=== PATIENT | female | born 1970 | race Hispanic/Latino ===

== ENCOUNTER → 2017-09-21 | Outpatient (CLI) | payer MEDICARE | END | disposition home or self-care (01) | LOC: RAH 10:00 | PROVIDERS: ATTEND Internal Medicine | DX: M54.12 Radiculopathy, cervical region (principal) | CPT/HCPCS: 72141 ==

== ENCOUNTER 2017-09-28 04:01 | Emergency (ER) | payer MEDICARE ==
[2017-09-28] MEDS ORDERED: KETOROLAC TROMETHAMINE 60 MG/2 ML VIAL ONE (04:49)
== END 2017-09-28 05:01 | disposition home or self-care (01) ==
LOC: EDH 04:01
DX: M54.16 Radiculopathy, lumbar region (principal); E11.9 Type 2 diabetes mellitus without complications; E78.5 Hyperlipidemia, unspecified; M19.90 Unspecified osteoarthritis, unspecified site; Z98.84 Bariatric surgery status
CPT/HCPCS: 96372; 99283; J1885

== ENCOUNTER → 2017-12-14 | Outpatient (CLI) | payer MEDICARE | END | disposition home or self-care (01) | LOC: OIH 11:13 | PROVIDERS: ATTEND Anesthesiology | DX: M17.11 Unilateral primary osteoarthritis, right knee (principal) | CPT/HCPCS: 73562 ==

== ENCOUNTER → 2019-09-13 | Outpatient (CLI) | payer MEDICARE | END | disposition home or self-care (01) | LOC: OIH 09:33 | PROVIDERS: ATTEND Internal Medicine | DX: Z01.818 Encounter for other preprocedural examination (principal) | CPT/HCPCS: 71046 ==

== ENCOUNTER → 2020-07-29 | Outpatient (CLI) | payer MEDICARE | END | disposition home or self-care (01) | LOC: RAH 07:45 | PROVIDERS: ATTEND Internal Medicine | DX: K76.0 Fatty (change of) liver, not elsewhere classified (principal); R16.0 Hepatomegaly, not elsewhere classified | CPT/HCPCS: 76700 ==

== ENCOUNTER → 2020-12-09 | Outpatient (CLI) | payer MEDICARE | END | disposition home or self-care (01) | LOC: RAH 08:44 | PROVIDERS: ATTEND Internal Medicine | DX: M47.22 Other spondylosis with radiculopathy, cervical region (principal) | CPT/HCPCS: 72040 ==

== ENCOUNTER → 2021-11-26 | Outpatient (CLI) | payer OTHER, MEDICARE | END | disposition home or self-care (01) | LOC: RAH 11:24 | PROVIDERS: ATTEND Internal Medicine | DX: E11.40 Type 2 diabetes mellitus with diabetic neuropathy, unspecified (principal); E11.9 Type 2 diabetes mellitus without complications | CPT/HCPCS: 71046 ==